=== PATIENT | female | born 1995 | race Caucasian/White ===

== ENCOUNTER 2018-02-19 16:09 | Emergency (ER) | payer OTHER ==
--- NOTE | 2018-02-19 16:49 | ED Physician Documentation ---
History of Present Illness - Stated complaint Stated Complaint: GARCIA/FACE NUMB - Chief complaint Chief Complaint: General - History obtained from History obtained from: Patient - History of Present Illness Pain level max: 7 Pain level now: 5 Improved by: motrin Worsened by: nothing - Additonal information Additional information: Patient is a 22-year-old female who presents to the emergency department with a frontal headache for the past 3 months. This is been intermittent, but seems to be better in the am and worse throughout the day. She denies any fevers. States she has taken Motrin for this which does help. Headache increased today and she feels like the right side of her face is going numb. Has not had any difficulty with speech or movement. She also feels like she is having trouble hearing out of the right ear. Also noticed a slight redness and swelling to the right side of the face. Denies any dental pain. She states that she has a long-standing history of sinus issues. Is not taking any other medications at home. Does not smoke. No IV drug use. She is not diabetic Denies any possibility of . Review of Systems Ten Systems: 10 systems reviewed and negative Constitutional: denies: Fever, Chills Throat: denies: Sore throat Cardiac: denies: Chest pain / pressure Respiratory: denies: Cough GI: denies: Nausea, Vomiting, Diarrhea : denies: Now EGA Skin: denies: Rash Musculoskeletal: denies: Neck pain, Back pain Neurologic: denies: Focal weakness, Numbness PD PAST MEDICAL HISTORY - Past Medical History Past Medical History: No Cardiovascular: None Respiratory: None Neuro: None Endocrine/Autoimmune: None GI: None AUDITING CODER: None : None HEENT: None Psych: None Musculoskeletal: None Derm: None - Present Medications Home Medications: Ambulatory Orders Medication Instructions Recorded Confirmed Amox/Clav 875/125 [Augmentin] 1 each PO Q12H #20 tablet 02/19/18 - Allergies Allergies/Adverse Reactions: Allergies Allergy/AdvReac Type Severity Reaction Status Date / Time No Known Drug Allergies Allergy Verified 02/19/18 16:21 - Social History Does the pt smoke?: No Smoking Status: Never smoker PD ED PE NORMAL - Vitals Vital signs reviewed: Yes - General General: Alert and oriented X 3, No acute distress, Well developed/nourished - HEENT HEENT: PERRL, EOMI, Moist mucous membranes, Pharynx benign, Other (R TM with fluid present, white fluid. mild erythema. Also mild TTP over the mastoid area , mostly just below the mastoid in the area of the lymphnode. shotty anterior R LAD. mild facial erythema and swelling, R cheek. ) - Neck Neck: Supple, no meningeal sign, No bony TTP - Cardiac Cardiac: RRR, Strong equal pulses - Respiratory Respiratory: No respiratory distress, Clear bilaterally - Abdomen Abdomen: Soft, Non tender, Non distended - Derm Derm: Warm and dry - Extremities Extremities: No edema - Neuro Neuro: Alert and oriented X 3, parts clerk 2-12 intact (except mild decreased sensation over R face. ), No motor deficit, Normal speech, Other (normal gait and cerebellar tests.) Eye Opening: Spontaneous Motor: Obeys Commands Verbal: Oriented GCS Score: 15 - Psych Psych: Normal mood, Normal affect Results - Vitals Vitals: Vital Signs - 24 hr 02/19/18 02/19/18 16:16 18:14 Temperature 37.0 C 36.2 C L Heart Rate 73 81 Respiratory 16 15 Rate Blood Pressure 135/87 H 94/57 L O2 Saturation 100 98 Oxygen O2 Source Room air - Labs Labs: Laboratory Tests 02/19/18 02/19/18 02/19/18 16:58 17:10 17:10 WBC 6.8 RBC 4.88 Hgb 13.2 Hct 38.5 MCV 78.8 L MCH 27.1 MCHC 34.4 RDW 16.2 H Plt Count 237 MPV 8.7 Neut # (Auto) 4.2 Lymph # (Auto) 2.0 [place] # (Auto) 0.5 Eos # (Auto) 0.0 Baso # (Auto) 0.0 Absolute Nucleated RBC 0.00 Nucleated RBC % 0.0 Sodium 136 Potassium 3.8 Chloride 100 L Carbon Dioxide 26 Anion Gap 10.0 BUN 10 Creatinine 0.8 Estimated GFR (MDRD) 90 Glucose 93 Calcium 9.5 Total Bilirubin 0.7 AST 20 ALT 10 Alkaline Phosphatase 73 Total Protein 8.4 H Albumin 4.9 Globulin 3.5 Albumin/Globulin Ratio 1.4 Lipase 25 Urine Color YELLOW Urine Clarity CLEAR Urine pH 6.0 Ur Specific [place] 1.010 Urine Protein NEGATIVE Urine Glucose (UA) NEGATIVE Urine Ketones NEGATIVE Urine Occult Blood NEGATIVE Urine Nitrite NEGATIVE Urine Bilirubin NEGATIVE Urine Urobilinogen 0.2 (NORMAL) Ur Leukocyte Esterase NEGATIVE Ur Microscopic Review NOT INDICATED Urine Culture Comments NOT INDICATED Urine HCG, Qual NEGATIVE - Rads (name of study) head CT Radiology: Prelim report reviewed, EMP read contemporaneously, See rad report ( normal) PD MEDICAL DECISION MAKING - ED course Complexity details: reviewed results, re-evaluated patient, considered differential, d/w patient ED course: Patient is a 22-year-old female with an acute otitis media and ongoing headache. Given Toradol, Benadryl, Compazine IV and headache resolved. Feels much better. Will place on Augmentin. We will have her follow-up with her doctor for further evaluation and care. No neurological deficits. No evidence of mastoiditis. No evidence of tumor or mass on head CT. Patient counseled regarding signs and symptoms for which I believe and urgent re-evaluation would be necessary. Patient with good understanding of and agreement to plan and is comfortable going home at this time This document was made in part using voice recognition software. While efforts are made to proofread this document, sound alike and grammatical errors may occur. - Sepsis Event Vital Signs: Vital Signs - 24 hr 02/19/18 02/19/18 16:16 18:14 Temperature 37.0 C 36.2 C L Heart Rate 73 81 Respiratory 16 15 Rate Blood Pressure 135/87 H 94/57 L O2 Saturation 100 98 Oxygen O2 Source Room air Departure - Departure Disposition: 01 Home, Self Care Clinical Impression: Headache Qualifiers: Headache type: unspecified Headache chronicity pattern: acute headache Intractability: not intractable Qualified Code(s): R51 - Headache Otitis media Qualifiers: Otitis media type: suppurative Chronicity: acute Laterality: right Recurrence: not specified as recurrent Spontaneous tympanic membrane rupture: without spontaneous rupture Qualified Code(s): H66.001 - Acute suppurative otitis media without spontaneous rupture of ear drum, right ear Condition: Good Instructions: ED Cephalgia Unspecified, ED Otitis Media Acute Adult Follow-Up: EMILY GILES MD [Primary Care Provider] - Within 1 week Prescriptions: Amox/Clav 875/125 [Augmentin] 1 each PO Q12H #20 tablet Comments: Take all antibiotics until gone. Return if you worsen. Go home and rest tonight. Do not drive today. Discharge Date/Time: 02/19/18 18:28
[2018-02-19 17:04] LABS: BILIRUBIN,URINE NEGATIVE (NEGATIVE); GLUCOSE, URINE (UA) NEGATIVE (NEGATIVE); KETONES,URINE (UA) NEGATIVE (NEGATIVE); LEUKOCYTE ESTERASE, URINE NEGATIVE (NEGATIVE); NITRITE,URINE NEGATIVE (NEGATIVE); OCCULT BLOOD,URINE NEGATIVE (NEGATIVE); PROTEIN,URINE NEGATIVE (NEGATIVE); UROBILINOGEN,URINE 0.2 (NORMAL) E.U./dL (NORMAL)
[2018-02-19 17:08] LABS: CLARITY,URINE CLEAR (CLEAR); HCG UR QUAL NEGATIVE
--- NOTE | 2018-02-19 17:13 | CT Report ---
Reason: R sided headache and facial swelling/pain Procedure Date: 02/19/2018 Accession Number: [id number] / [id number] Procedure: CT - Head W/O CPT Code: FULL RESULT: EXAM: CT HEAD EXAM DATE: 02/19/2018 04:56 PM. CLINICAL HISTORY: Right-sided headache and facial swelling/pain. COMPARISON: None. TECHNIQUE: Multiaxial CT images were obtained from the foramen magnum to the vertex. Reformats: Coronal. IV contrast: None. In accordance with CT protocol optimization, one or more of the following dose reduction techniques were utilized for this exam: automated exposure control, adjustment of mA and/or KV based on patient size, or use of iterative reconstructive technique. FINDINGS: Parenchyma: No intraparenchymal hemorrhage. No evidence of mass, midline shift, or CT findings of infarction. Waddell-white differentiation is distinct. Extraaxial Spaces: Normal for age. No subdural or epidural collections identified. Ventricles: Normal in size and position. Sinuses and Orbits: Imaged paranasal sinuses, orbits, and mastoids show no significant abnormality. Bones: No evidence of fracture or calvarial defect. Other: None. IMPRESSION: Normal head CT. RADIA
[2018-02-19 17:23] LABS: BASOPHILS % (AUTO) 0.7 %; EOSINOPHILS % (AUTO) 0.5 %; HGB - HEMOGLOBIN 13.2 g/dL (12.0-16.0); LYMPHOCYTES % (AUTO) 29.3 %; MEAN CORPUSCULAR HEMOGLOBIN 27.1 pg (27.0-31.0); MEAN CORPUSCULAR HGB CONC 34.4 g/dL (32.0-36.0); MEAN CORPUSCULAR VOLUME 78.8 fL (81.0-99.0); MEAN PLATELET VOLUME 8.7 fL (7.9-10.8); MONOCYTES # (AUTO) 0.5 10^3/uL (0.0-1.0); MONOCYTES % (AUTO) 7.8 %; NEUTROPHILS # (AUTO) 4.2 10^3/uL (1.5-6.6); NEUTROPHILS % (AUTO) 61.7 %; PLT - PLATELET COUNT 237 10^3/uL (130-450); RED BLOOD COUNT 4.88 10^6/uL (4.20-5.40); RED CELL DISTRIBUTION WIDTH 16.2 % (12.0-15.0); WHITE BLOOD COUNT 6.8 x10^3/uL (4.8-10.8)
[2018-02-19 17:35] LABS: ALBUMIN 4.9 g/dL (3.2-5.5); ALBUMIN/GLOBULIN RATIO 1.4 (1.0-2.2); BILIRUBIN,TOTAL 0.7 mg/dL (0.2-1.0); CALCIUM 9.5 mg/dL (8.5-10.3); CREATININE 0.8 mg/dL (0.4-1.0); TOTAL PROTEIN 8.4 g/dL (6.7-8.2)
[2018-02-19] MEDS ORDERED: KETOROLAC 60 MG/2 ML VIAL IVP STA (17:42)
[2018-02-19] MEDS ORDERED: diphenhydrAMINE INJ 50 MG/ML VIAL IVP STA (17:42)
[2018-02-19] MEDS ORDERED: PROCHLORPERAZINE 10 MG/2 ML VIAL IVP STA (17:42)
[2018-02-19] MEDS ORDERED: AMOX/CLAV 875 MG/125 MG TABLET PO STA (17:51)
[2018-02-19] MEDS ORDERED: DEXAMETHASONE 10 MG/ML VIAL PO STA (17:51)
[2018-02-19] MEDS ORDERED: CHERRY SYRUP 10 ML UDC PO ONE (18:04)
[2018-02-19 18:14] VITALS: BP 94/57
== END 2018-02-19 18:28 | disposition home or self-care (01) ==
LOC: ED 16:09
DX: R51 Headache (principal); H66.001 Acute suppurative otitis media without spontaneous rupture of ear drum, right ear
CPT/HCPCS: 36415; 70450; 80053; 81003; 81025; 83690; 85025; 96374; 96375; 99283; 99284; A9270; J1200; 81001; 87086